=== PATIENT | male | born 1940 | race Caucasian/White ===

== ENCOUNTER → 2016-11-19 | Outpatient (CLI) | payer MEDICARE, BC ==
[~2016-11-19] MED LIST: ALDA50TA2 PO; ASPE10GE TOPICAL; CLOP75TA PO; FURO1TAB62 PO; LEVO100T5 PO; MELA5TAB15 PO; OMEP20TA PO; OXYC-392 PO; PROP10TA6 PO; SIMV10TA PO; VENL150T PO
[2016-11-19 15:42] LABS: INTERNATIONAL NORMALIZED RATIO 1.1 RATIO; PROTHROMBIN TIME - PATIENT 11.7 SEC (9.8-11.6)
[2016-11-19 17:02] LABS: AUTOMATED NEUTROPHIL # 3.5 TH/MM3 (1.8-7.7); BASOPHIL % 0.3 % (0.0-2.0); EOSINOPHIL # 0.1 TH/MM3 (0-0.4); EOSINOPHIL % 1.2 % (0.0-4.0); HEMATOCRIT 34.6 % (39.0-51.0); LYMPHOCYTE # 0.6 TH/MM3 (1.0-4.8); MEAN CELL VOLUME 95.4 FL (80.0-100.0); MEAN CORPUSCULAR HEMOGLOBIN 32.3 PG (27.0-34.0); MEAN CORPUSCULAR HGB CONC 33.9 % (32.0-36.0); MONO % 8.5 % (0.0-8.0); PLATELET COUNT 100 TH/MM3 (150-450); RED BLOOD COUNT 3.63 MIL/MM3 (4.50-5.90); RED CELL DISTRIBUTION WIDTH 15.4 % (11.6-17.2); WHITE BLOOD COUNT 4.6 TH/MM3 (4.0-11.0)
[2016-11-19 17:09] LABS: ALKALINE PHOSPHATASE 133 U/L (45-117); TOTAL BILIRUBIN ADULT 1.4 MG/DL (0.2-1.0)
[2016-11-19 17:12] LABS: ALT (GPT) 40 U/L (12-78); ANION GAP 12 MEQ/L (5-15); AST (GOT) 56 U/L (15-37); BICARBONATE 20.4 MEQ/L (21.0-32.0); BLOOD UREA NITROGEN 15 MG/DL (7-18); CHLORIDE 103 MEQ/L (98-107); GLOMERULAR FILTRATION RATE 47 ML/MIN (>89); SODIUM (NA) 135 MEQ/L (136-145)
[2016-11-19 17:27] LABS: HEMO FLAGS AUTO DIFF
[2016-11-19 17:53] LABS: PLATELET ESTIMATE SMEAR LOW (NORMAL); PLATELET MORPHOLOGY NORMAL (NORMAL); SCAN/DIFF AUTO DIFF CONFIRMED
== END ==
LOC: PLAB 12:58
DX: K74.69 Other cirrhosis of liver (principal)
CPT/HCPCS: 36415; 80053; 82105; 85025; 85610

== ENCOUNTER 2016-12-17 17:19 | Emergency (ER) | payer MEDICARE, BC ==
[~2016-12-17 17:19] MED LIST changes: +MELA5 PO; -MELA5TAB15 PO; -OMEP20TA PO; +OMEP20TA93 PO
[2016-12-17 17:22] VITALS: BP 102/65; PULSE 73; RESP 16; TEMP 97.8; O2SAT 94
[2016-12-17 19:13] LABS: BACTERIA, URINE MANY /hpf; BLOOD, URINE MOD (NEG); COMMENT (UR) CULTURE INDICATED; CULTURE IF INDICATED CULTURE INDICATED; GLUCOSE,URINE NEG (NEG); KETONE, URINE NEG (NEG); NITRITE,URINE NEG (NEG); PH, URINE 5.5 (5.0-8.5); SQUAMOUS EPITHELIAL CELL URINE <1 /hpf (0-5); URINE COLOR YELLOW (YELLW/STRAW)
[2016-12-17 19:14] LABS: AUTOMATED NEUTROPHIL # 6.6 TH/MM3 (1.8-7.7); BASOPHIL % 0.4 % (0.0-2.0); EOSINOPHIL % 0.4 % (0.0-4.0); HEMATOCRIT 32.5 % (39.0-51.0); LYMPH % 7.9 % (9.0-44.0); LYMPHOCYTE # 0.6 TH/MM3 (1.0-4.8); MEAN CELL VOLUME 94.6 FL (80.0-100.0); MEAN CORPUSCULAR HEMOGLOBIN 32.5 PG (27.0-34.0); MEAN CORPUSCULAR HGB CONC 34.4 % (32.0-36.0); MONO % 7.8 % (0.0-8.0); NEUT % 83.5 % (16.0-70.0); PLATELET COUNT 66 TH/MM3 (150-450); RED BLOOD COUNT 3.44 MIL/MM3 (4.50-5.90); RED CELL DISTRIBUTION WIDTH 15.4 % (11.6-17.2); WHITE BLOOD COUNT 7.9 TH/MM3 (4.0-11.0)
[2016-12-17 19:18] LABS: HEMO FLAGS AUTO DIFF
--- NOTE | 2016-12-17 19:19 | PD ---
HPI Chief Complaint: Abdominal Pain Time Seen by Provider: 19:14 Travel History International Travel<30 days: No Contact w/Intl Traveler<30days: No Traveled to known affect area: No History of Present Illness HPI per pt and family member, over past 3weeks, worsening abd girth, abd pain, and nausea but without vomiting, no fever/d/cough/cp/back pain...no alleviating/ aggravatting factors.....PATIENT DID NOTE INCREASE FREQUENCY AND SUPRAPUBIC DISCOMFORT OVER PAST 2-3 DAYS WHICH WERE DIFFERENT FROM HIS USUAL DIFFUSE ABD PAIN, PRESSURE, 10, NONRAD. marg[place]ita gi pcp: [facility] Past Medical History Arthritis: Yes Cancer: Yes (HX PROSTATE) Cardiovascular Problems: No High Cholesterol: Yes Cirrhosis: Yes (LIVER) Diabetes: No Diminished Hearing: No Endocrine: Yes Gastrointestinal Disorders: Yes (GERD, GI BLEED HX) GERD: Yes Genitourinary: No Hepatitis: No Hiatal Hernia: No Hypertension: Yes Immune Disorder: No Kidney Stones: Yes Medical other: Yes (Right thumb surgery) Musculoskeletal: Yes (ARTHRITIS) Neurologic: Yes (LUMBAR PAIN) Psychiatric: No Reproductive: No Respiratory: Yes (SLEEP APNEA/ C PAP) Radiation Therapy: Yes (SEEDS IMPLANTED) Thyroid Disease: Yes Past Surgical History Abdominal Surgery: No AICD: No Body Medical Devices: LUMBAR HARDWARE Cardiac Surgery: No Ear Surgery: No Endocrine Surgery: No Genitourinary Surgery: Yes (PROSTATE SEEDS IMPLANTED) Joint Replacement: No Neurologic Surgery: Yes (LUMBAR FUSION) Oral Surgery: Yes (T&A) Pacemaker: No Thoracic Surgery: No Tonsillectomy: Yes (T&A) Other Surgery: Yes Social History Alcohol Use: No (HX OF ETOH ABUSE) Tobacco Use: No (QUIT 33 YEARS AGO) Substance Use: No Allergies-Medications (Allergen,Severity, Reaction): Coded Allergies: Sulfa (Sulfonamide Antibiotics) (Unverified Allergy, Severe, Rash, swelling, 09/24/16) Reported Meds & Prescriptions Reported Meds & Active Scripts Active Reported Aldactone (Spironolactone) 50 Mg Tab 50 Mg PO DAILY Lasix (Furosemide) 20 Mg Tab 20 Mg PO DAILY Melatonin 5 Mg Tab 1-3 Mg PO HS Venlafaxine ER 24 HR (Venlafaxine HCl) 150 Mg Tab 150 Mg PO DAILY Simvastatin 10 Mg Tab 10 Mg PO DAILY Propranolol (Propranolol HCl) 10 Mg Tab 10 Mg PO Q12HR Oxycodone (Oxycodone HCl) 5 Mg Tab 5 Mg PO Q8H PRN Omeprazole 20 Mg Tab 20 Mg PO DAILY Levothyroxine (Levothyroxine Sodium) 100 Mcg Tab 100 Mcg PO DAILY Clopidogrel (Clopidogrel Bisulfate) 75 Mg Tab 75 Mg PO DAILY Aspercreme Heat Topical (Menthol Topical) 10 % Gel 1 Applic TOPICAL DIRECTED PRN Review of Systems Except as stated in HPI: all other systems reviewed are Neg General / Constitutional: Positive: Other (gen weakness), No: Fever Eyes: No: Visual changes HENT: No: Headaches Cardiovascular: No: Chest Pain or Discomfort Respiratory: No: Shortness of Breath Gastrointestinal: Positive: Nausea, Abdominal Pain Genitourinary: No: Dysuria Musculoskeletal: No: Pain Skin: No Rash Neurologic: No: Weakness Psychiatric: No: Depression Endocrine: No: Polydipsia Hematologic/Lymphatic: No: Easy Bruising Physical Exam Narrative GENERAL: SKIN: Warm and dry. some jaundice noted HEAD: Atraumatic. Normocephalic. EYES: Pupils equal and round. No scleral icterus. No injection or drainage. ENT: No nasal bleeding or discharge. Mucous membranes pink and moist. NECK: Trachea midline. No JVD. CARDIOVASCULAR: Regular rate and rhythm. RESPIRATORY: No accessory muscle use. Clear to auscultation. Breath sounds equal bilaterally. GASTROINTESTINAL: Abdomen soft, non-tender, mild abd distension. MUSCULOSKELETAL: Extremities without clubbing, cyanosis, or edema. No obvious deformities. NEUROLOGICAL: Awake and alert. No obvious cranial nerve deficits. Motor grossly within normal limits. Five out of 5 muscle strength in the arms and legs. Normal speech. PSYCHIATRIC: Appropriate mood and affect; insight and judgment normal. Data Data Last Documented VS Vital Signs Date Time Temp Pulse Resp B/P (MAP) Pulse Ox O2 Delivery O2 Flow Rate FiO2 12/17/16 19:25 62 18 116/71 (86) 98 Room Air 12/17/16 17:22 97.8 Orders Orders Complete Blood Count With Diff (12/17/16 17:34) Comprehensive Metabolic Panel (12/17/16 17:34) Prothrombin Time / Inr (Pt) (12/17/16 17:34) Act Partial Throm Time (Ptt) (12/17/16 17:34) Urinalysis - C+S If Indicated (12/17/16 17:34) Electrocardiogram (12/17/16 17:34) Ammonia (12/17/16 17:34) Urine Culture (12/17/16 16:20) Ceftriaxone Inj (Rocephin Inj) (12/17/16 19:30) Sodium Chlorid 0.9% 500 Ml Inj (Ns 500 M (12/17/16 20:15) Ct Abd/Pel W/O Iv Contrast (12/17/16 20:01) Labs Laboratory Tests Test 12/17/16 16:20 12/17/16 19:34 White Blood Count 7.9 TH/MM3 Red Blood Count 3.44 MIL/MM3 Hemoglobin 11.2 GM/DL Hematocrit 32.5 % Mean Corpuscular Volume 94.6 FL Mean Corpuscular Hemoglobin 32.5 PG Mean Corpuscular Hemoglobin Concent 34.4 % Red Cell Distribution Width 15.4 % Platelet Count 66 TH/MM3 Mean Platelet Volume 8.2 FL Neutrophils (%) (Auto) 83.5 % Lymphocytes (%) (Auto) 7.9 % Monocytes (%) (Auto) 7.8 % Eosinophils (%) (Auto) 0.4 % Basophils (%) (Auto) 0.4 % Neutrophils # (Auto) 6.6 TH/MM3 Lymphocytes # (Auto) 0.6 TH/MM3 Monocytes # (Auto) 0.6 TH/MM3 Eosinophils # (Auto) 0.0 TH/MM3 Basophils # (Auto) 0.0 TH/MM3 CBC Comment AUTO DIFF Differential Comment AUTO DIFF CONFIRMED Toxic Granulation 1+ Platelet Estimate LOW Platelet Morphology Comment NORMAL Prothrombin Time 12.1 SEC Prothromb Time International Ratio 1.1 RATIO Activated Partial Thromboplast Time 28.7 SEC Urine Color YELLOW Urine Turbidity HAZY Urine pH 5.5 Urine Specific Sullivan 1.014 Urine Protein TRACE mg/dL Urine Glucose (UA) NEG mg/dL Urine Ketones NEG mg/dL Urine Occult Blood MOD Urine Nitrite NEG Urine Bilirubin NEG Urine Urobilinogen 2.0 MG/DL Urine Leukocyte Esterase TRACE Urine RBC 2 /hpf Urine WBC 16 /hpf Urine Squamous Epithelial Cells <1 /hpf Urine Amorphous Sediment RARE Urine Bacteria MANY /hpf Microscopic Urinalysis Comment CULTURE INDICATED Blood Urea Nitrogen 30 MG/DL Creatinine 1.22 MG/DL Random Glucose 117 MG/DL Total Protein 8.6 GM/DL Albumin 2.8 GM/DL Calcium Level 9.3 MG/DL Alkaline Phosphatase 176 U/L Aspartate Amino Transf (AST/SGOT) 44 U/L Alanine Aminotransferase (ALT/SGPT) 51 U/L Total Bilirubin 1.5 MG/DL Sodium Level 128 MEQ/L Potassium Level 4.3 MEQ/L Chloride Level 95 MEQ/L Carbon Dioxide Level 23.2 MEQ/L Anion Gap 10 MEQ/L Estimat Glomerular Filtration Rate 57 ML/MIN Ammonia 15 MCMOL/L [facility] Medical Decision Making Medical Screen Exam Complete: Yes Emergency Medical Condition: Yes Medical Record Reviewed: Yes Interpretation(s) nsr, 63, inverted t waves v1-v4, no stemi pattern Differential Diagnosis uti v pna v cirrhosis v sbo v ileus v pancreatitis v hepatic encephalopathy Narrative Course PATIENT FOUND TO HAVE UTI WITH MILD HYPONATREMIA...TOLERATED PO CHALLENGE AND APPEARS TO BE A CANDIDATE FOR OUTPATIENT THERAPY AFTER ROCEPHIN AND NS IVF GIVEN. Diagnosis Primary Impression: UTI Additional Impression: HYPONATREMIA Patient Instructions: General Instructions, Urinary Tract Infection in Men (ED) Additional Instructions: PLEASE MAKE APPOINTMENT TO FOLLOW UP WITH DR THAO FOR FURTHER REEVALUATION AND CARE Scripts Ciprofloxacin (Cipro) 500 Mg Tab 500 MG PO BID for Infection for 7 Days, #14 TAB 0 Refills Prov: Kaiser Mendoza MD 12/17/16 Oxycodone (Oxycodone) 5 Mg Cap 5 MG PO Q6H Y for PAIN, #14 CAP 0 Refills Prov: Kaiser Mendoza MD 12/17/16 Disposition: 01 DISCHARGE HOME Condition: Stable Kaiser Mendoza MD Dec 17, 2016 19:19
[2016-12-17 19:23] LABS: APTT (PATIENT) 28.7 SEC (24.3-30.1); INTERNATIONAL NORMALIZED RATIO 1.1 RATIO; PROTHROMBIN TIME - PATIENT 12.1 SEC (9.8-11.6)
[2016-12-17 19:25] VITALS: BP 116/71; PULSE 62; RESP 18; O2SAT 98
[2016-12-17] MEDS ORDERED: cefTRIAXone INJ 1,000 MG in SODIUM CHLORIDE 0.9% INJ 100 ML IV ONE (19:30)
[2016-12-17 19:35] LABS: ANION GAP 10 MEQ/L (5-15); AST (GOT) 44 U/L (15-37); BICARBONATE 23.2 MEQ/L (21.0-32.0); BLOOD UREA NITROGEN 30 MG/DL (7-18); CHLORIDE 95 MEQ/L (98-107); GLOMERULAR FILTRATION RATE 57 ML/MIN (>89); POTASSIUM 4.3 MEQ/L (3.5-5.1); SODIUM (NA) 128 MEQ/L (136-145)
[2016-12-17 19:36] LABS: ALT (GPT) 51 U/L (12-78)
[2016-12-17 19:39] LABS: ALKALINE PHOSPHATASE 176 U/L (45-117); TOTAL BILIRUBIN ADULT 1.5 MG/DL (0.2-1.0)
[2016-12-17 20:03] LABS: PLATELET ESTIMATE SMEAR LOW (NORMAL); PLATELET MORPHOLOGY NORMAL (NORMAL); SCAN/DIFF AUTO DIFF CONFIRMED; TOXIC GRANULATION 1+ (NORMAL)
[2016-12-17] MEDS ORDERED: SODIUM CHLORID 0.9% 500 ML INJ 500 ML IV ONE (20:15)
--- NOTE | 2016-12-17 20:43 | RADRPT ---
EXAM DATE/TIME: 12/17/2016 20:15 [facility] COMPARISON: CT ABDOMEN & PELVIS W/O CONTRAST, January 13, 2014, 2:28. INDICATIONS : Diffuse abdominal pain with distention and nausea. ORAL CONTRAST: No oral contrast ingested. RADIATION DOSE: 7.17 CTDIvol (mGy) MEDICAL HISTORY : Cardiovascular disease. Hypertension. Carcinoma, prostate.renal stones, cirrohsis SURGICAL HISTORY : None. ENCOUNTER: Initial ACUITY: 3 days PAIN SCALE: 8/10 LOCATION: abdomen TECHNIQUE: Volumetric scanning of the abdomen and pelvis was performed. Using automated exposure control and ad justment of the mA and/or kV according to patient size, radiation dose was kept as low as reasonably achievable to obtain optimal diagnostic quality images. DICOM format image data is available electro nically for review and comparison. FINDINGS: LOWER LUNGS: The visualized lower lungs are clear. LIVER: There is a lobulated contour to the liver. No discrete mass on this unenhanced study. Gallbladder is unremarkable. A trace amount of ascitic fluid adjacent to the right lobe. SPLEEN: The spleen is enlarged measuring 16.4 cm. This is larger from the prior study. PANCREAS: Within normal limits. KIDNEYS: Normal in size and shape. There is no mass, stone, or hydronephrosis. ADRENAL GLANDS: Within normal limits. VASCULAR: Fusiform aneurysmal change involving the infrarenal aorta and bilateral common iliac arteries. The ao rta measures 3.6 x 3.4 cm which is stable from the prior study. The left common iliac artery measures approximately 2 cm and the right 1.7 cm. BOWEL/MESENTERY: The stomach, small bowel, and colon demonstrate no acute abnormality. There is no free intraperitone al air or fluid. ABDOMINAL WALL: Within normal limits. RETROPERITONEUM: There is no lymphadenopathy. BLADDER: No wall thickening or mass. REPRODUCTIVE: Within normal limits. INGUINAL: There is a right inguinal hernia containing ascitic fluid. MUSCULOSKELETAL: A degenerative spine with post surgical changes involving the lower lumbar spine. CONCLUSION: 1. Cirrhosis with small volume ascites. 2. Splenomegaly. 3. Stable AAA is 3.6 x 3.4 cm. 4. Right inguinal hernia containing ascitic fluid. Jeromy Holm Jr., MD on December 17, 2016 at 20:36 Board Certified Radiologist. This report was verified electronically.
[2016-12-17] MEDS ORDERED: OXYC1CAP PO (21:21)
[2016-12-17] MEDS ORDERED: CIPR-9 PO (21:21)
--- NOTE | 2016-12-18 09:43 | EKG ---
Date Performed: 12/17/2016 Time Performed: 19:15:40 PTAGE: 76 years EKG: Sinus rhythm MODERATE T-WAVE ABNORMALITY, CONSIDER ANTERIOR ISCHEMIA ABNORMAL ECG NO PREVIOUS TRACING DOCTOR: Jhoan Augustin Interpretating Date/Time 12/18/2016 09:42:33
== END 2016-12-17 22:13 | disposition home or self-care (01) ==
LOC: NEPC 17:19
DX: N39.0 Urinary tract infection, site not specified (principal); E87.1 Hypo-osmolality and hyponatremia; R11.0 Nausea; B96.1 Klebsiella pneumoniae [K. pneumoniae] as the cause of diseases classified elsewhere; R94.31 Abnormal electrocardiogram [ECG] [EKG]; R16.1 Splenomegaly, not elsewhere classified; I71.4 Abdominal aortic aneurysm, without rupture; K40.90 Unilateral inguinal hernia, without obstruction or gangrene, not specified as recurrent; I10 Essential (primary) hypertension
CPT/HCPCS: 74176; 80053; 81001; 82140; 85025; 85610; 85730; 87077; 87086; 87186; 93005; 96374; 99285; J0696; J7040

== ENCOUNTER 2017-01-09 08:13 | Day surgery (SDC) | payer MEDICARE, BC ==
[~2017-01-09 08:13] MED LIST changes: +CIPR-9 PO; +OXYC1CAP PO
[2017-01-09 09:37] VITALS: BP 115/70; PULSE 86; RESP 16; TEMP 97; O2SAT 96
[2017-01-09 10:10] VITALS: BP 99/61; PULSE 87; RESP 18; TEMP 98.4; O2SAT 94
[2017-01-09 10:34] VITALS: BP 108/54; PULSE 80; RESP 18; O2SAT 99
--- NOTE | 2017-01-09 10:42 | RADRPT ---
EXAM DATE/TIME: 01/09/2017 08:54 [facility] COMPARISON: No previous studies available for comparison. INDICATIONS : Ascites. MEDICAL HISTORY : Hypercholesterolemia. Hypertension. Gastroesophageal reflux disease. Aortic stenosis. Glaucoma. Arthr itis. Prostate cancer. Kidney stones. Hypothyroidism. Skin cancer. Cirrhosis. SURGICAL HISTORY : Tonsillectomy. TAVR. Lumbar fusion. Prostate seed implantation. Right thumb amputation. Grafting fro m left hip. ENCOUNTER: Initial ACUITY: 1 day PAIN SCORE: 0/10 LOCATION: Left lower quadrant FLUID: Total volume of 4,500 cc of clear, yellow fluid was removed. Fluid was discarded. Paracentesis was therapeutic only. Post procedure scanning reveals no hematoma or other complication. TECHNIQUE: 1. Ultrasound guidance for abdominal paracentesis. 2. Paracentesis. The risks, benefits, and alternatives to ultrasound guided paracentesis were explained to the patient in detail including the risk of bleeding and infection. Written and verbal informed consent was obt ained. With the patient on the ultrasound table, ultrasound imaging was used to select the most appropriate approach for paracentesis. Overlying skin was prepped and draped in the usual sterile fashion and wi th a local anesthetic, a dermatotomy was made with an 11 blade scalpel. A 6 Yoruba Evp-G-earkzvro ca theter was introduced into the peritoneal cavity and fluid was collected. The patient tolerated the procedure well and left the ultrasound suite in stable condition. CONCLUSION: Uncomplicated ultrasound guided paracentesis. Jeromy Holm Jr., MD on January 09, 2017 at 10:40 Board Certified Radiologist. This report was verified electronically.
== END 2017-01-09 11:05 ==
LOC: HRAD 08:13 → HRIP 08:36 → HRAD 11:05
PROVIDERS: ATTEND Family Medicine
DX: R18.8 Other ascites (principal); E78.00 Pure hypercholesterolemia, unspecified; I10 Essential (primary) hypertension; K21.9 Gastro-esophageal reflux disease without esophagitis; I35.0 Nonrheumatic aortic (valve) stenosis; H40.9 Unspecified glaucoma; E03.9 Hypothyroidism, unspecified; K74.60 Unspecified cirrhosis of liver; Z87.442 Personal history of urinary calculi; Z85.46 Personal history of malignant neoplasm of prostate; Z85.828 Personal history of other malignant neoplasm of skin
CPT/HCPCS: 49083; C1729

== ENCOUNTER 2017-04-04 11:13 | Day surgery (SDC) | payer BC, MEDICARE, OTHER ==
[2017-04-04 11:53] LABS: HEMATOCRIT 27.4 % (39.0-51.0); HEMOGLOBIN 9.4 GM/DL (13.0-17.0); MEAN CELL VOLUME 94.4 FL (80.0-100.0); MEAN CORPUSCULAR HEMOGLOBIN 32.3 PG (27.0-34.0); MEAN CORPUSCULAR HGB CONC 34.2 % (32.0-36.0); PLATELET COUNT 92 TH/MM3 (150-450); RED BLOOD COUNT 2.91 MIL/MM3 (4.50-5.90); RED CELL DISTRIBUTION WIDTH 17.4 % (11.6-17.2); WHITE BLOOD COUNT 4.9 TH/MM3 (4.0-11.0)
[2017-04-04 12:02] LABS: INTERNATIONAL NORMALIZED RATIO 1.1 RATIO; PROTHROMBIN TIME - PATIENT 11.2 SEC (9.8-11.6)
[2017-04-04 13:20] VITALS: BP 113/76; PULSE 86; RESP 22; TEMP 97.7; O2SAT 100
[2017-04-04] MEDS ORDERED: ALBUMIN HUMAN 25% 50 GM IV ONE (14:30)
[2017-04-04] MEDS ORDERED: LIDOCAINE HCL 1% 20 ML VIAL ONE (15:16)
--- NOTE | 2017-04-04 15:59 | RADRPT ---
EXAM DATE/TIME: 04/04/2017 13:15 [facility] COMPARISON: US GUIDED ABD PARACENTESIS, January 09, 2017, 8:54. INDICATIONS : Ascites. MEDICAL HISTORY : Cirrhosis. Hypercholesterolemia. Hypertension. Gastroesophageal reflux disease. Aorticstenosis. Gla ucoma. Arthritis. Prostate cancer. Kidney stones. Hypothyroidism. Skin cancer. SURGICAL HISTORY : Tonsillectomy. TAVR. Lumbar fusion. Prostate seed implantation. Right thumb amputation. Grafting from left hip. ENCOUNTER: Subsequent ACUITY: 3 months PAIN SCORE: 5/10 LOCATION: Right lower quadrant FLUID: Total volume of 7,600 cc of cloudy, red tinged fluid was removed. Fluid was discarded. Paracentesis was therapeutic only. Post procedure scanning reveals no hematoma or other complication. TECHNIQUE: 1. Ultrasound guidance for abdominal paracentesis. 2. Paracentesis. The risks, benefits, and alternatives to ultrasound guided paracentesis were explained to the patient in detail including the risk of bleeding and infection. Written and verbal informed consent was obt ained. With the patient on the ultrasound table, ultrasound imaging was used to select the most appropriate approach for paracentesis. Overlying skin was prepped and draped in the usual sterile fashion and wi th a local anesthetic, a dermatotomy was made with an 11 blade scalpel. A 6 Taiwanese Qhx-B-hrwuzjnv ca theter was introduced into the peritoneal cavity and fluid was collected. The patient tolerated the procedure well and left the ultrasound suite in stable condition. CONCLUSION: Uncomplicated ultrasound guided paracentesis. Raj Alford MD on April 04, 2017 at 15:57 Board Certified Radiologist. This report was verified electronically.
== END 2017-04-04 16:00 | disposition home or self-care (01) ==
LOC: HRAD 11:13 → HRIP 11:36 → HRAD 16:00
PROVIDERS: ATTEND Family Medicine
DX: R18.8 Other ascites (principal); K74.60 Unspecified cirrhosis of liver; I35.0 Nonrheumatic aortic (valve) stenosis; I10 Essential (primary) hypertension; E78.00 Pure hypercholesterolemia, unspecified; K21.9 Gastro-esophageal reflux disease without esophagitis; H40.9 Unspecified glaucoma; E03.9 Hypothyroidism, unspecified; Z85.46 Personal history of malignant neoplasm of prostate; Z85.828 Personal history of other malignant neoplasm of skin; Z87.442 Personal history of urinary calculi; Z01.818 Encounter for other preprocedural examination
CPT/HCPCS: 36415; 49083; 85027; 85610; 85730; 96365; C1729; P9047

== ENCOUNTER 2017-04-17 08:12 | Day surgery (SDC) | payer MEDICARE, BC ==
[~2017-04-17] VITALS: Ht 165.1 cm; Wt 68.2 kg
[2017-04-17] MEDS ORDERED: IOHEXOL 350 MG/ML 50 ML BTL (for RAD DIAG) OTHER ONE (08:13)
[2017-04-17 08:38] VITALS: BP 141/72; PULSE 76; RESP 20; TEMP 97.6; O2SAT 95
[2017-04-17] MEDS ORDERED: VANCOMYCIN 1000 MG/NS 250 ML - implanted port/tunneled catheter IV SCH ×2 (08:45)
[2017-04-17] MEDS ORDERED: SODIUM CHLORIDE 0.9% 1000 ML IV SCH (08:45)
[2017-04-17] MEDS ORDERED: ceFAZolin 2 GM PREMIX 50 ML - implanted port/tunneled catheter insertion IV SCH (08:45)
[2017-04-17] MEDS ORDERED: ZOLP5TAB3 PO (08:57)
[2017-04-17] MEDS ORDERED: POTA10TA2 PO (08:57)
[2017-04-17] MEDS ORDERED: MULT-65 PO (08:57)
[2017-04-17] MEDS ORDERED: LACT10SO PO (08:57)
[2017-04-17] MEDS ORDERED: LORA1TAB12 PO (08:57)
[2017-04-17] MEDS ORDERED: DOCU100C15 PO (08:57)
[2017-04-17] MEDS ORDERED: ZOFR4TAB PO (08:57)
[2017-04-17] MEDS ORDERED: RANI150C PO (08:57)
[2017-04-17] MEDS ORDERED: XIFA550T4 PO (08:57)
[2017-04-17] MEDS ORDERED: L. A1CAP PO (08:57)
[2017-04-17] MEDS ORDERED: DIPH25CA PO (08:57)
[2017-04-17] MEDS ORDERED: [UNRECOGNIZED DRUG - OTHER] PO (08:57)
[2017-04-17 09:02] LABS: AUTOMATED NEUTROPHIL # 2.2 TH/MM3 (1.8-7.7); BASOPHIL % 1.3 % (0.0-2.0); EOSINOPHIL # 0.2 TH/MM3 (0-0.4); HEMOGLOBIN 8.9 GM/DL (13.0-17.0); LYMPH % 13.6 % (9.0-44.0); LYMPHOCYTE # 0.5 TH/MM3 (1.0-4.8); MEAN CELL VOLUME 93.7 FL (80.0-100.0); MEAN CORPUSCULAR HEMOGLOBIN 31.9 PG (27.0-34.0); MEAN CORPUSCULAR HGB CONC 34.1 % (32.0-36.0); MEAN PLATELET VOLUME 6.7 FL (7.0-11.0); MONOCYTE # 0.4 TH/MM3 (0-0.9); NEUT % 65.1 % (16.0-70.0); PLATELET COUNT 89 TH/MM3 (150-450); RED BLOOD COUNT 2.78 MIL/MM3 (4.50-5.90); RED CELL DISTRIBUTION WIDTH 16.9 % (11.6-17.2); WHITE BLOOD COUNT 3.4 TH/MM3 (4.0-11.0)
[2017-04-17 09:43] LABS: OVALOCYTES 1+ (NORMAL)
[2017-04-17] MEDS ORDERED: MIDAZOLAM HCL 2 MG/2 ML VIAL ONE (09:48)
[2017-04-17] MEDS ORDERED: LIDOCAINE 1%/EPINEPHrine 1:100,000 SOLN 30 ML VIAL ONE (10:08)
--- NOTE | 2017-04-17 10:43 | PD.RAD ---
Post Procedure Progress Note Pre Procedure Diagnosis: (1) Ascites (2) Cirrhosis Post Procedure Diagnosis: (1) Cirrhosis (2) Ascites Procedure Date: Apr 17, 2017 Supervising Radiologist: Raj Alford Estimated blood loss: 1cc Anesthesia: Local, Conscious Sedation Plan of Activity Patient to Unit: ROPU Patient Condition: Fair Additional Comments: ASPIRA drain placed in the right side of the abdomen. Catheter is in excellent position OK for use. Full dictated report to follow See PACS Report for procedural detail/treatment Raj Alford MD Apr 17, 2017 10:43
[2017-04-17 11:00] VITALS: BP 101/52; PULSE 98; RESP 16; TEMP 98.3; O2SAT 96
[2017-04-17 11:15] VITALS: BP 111/65; PULSE 98; RESP 18; O2SAT 96
[2017-04-17 11:45] VITALS: BP 102/59; PULSE 97; RESP 18; O2SAT 98
[2017-04-17 12:15] VITALS: BP 134/71; PULSE 88; RESP 16; O2SAT 94
--- NOTE | 2017-04-17 13:57 | RADRPT ---
EXAM DATE/TIME: 04/17/2017 10:48 [facility] COMPARISON: No previous studies available for comparison. INDICATIONS : Ascites. Liver cirrohosis non alchoholic. MEDICAL HISTORY : 1. Prostate cancer 2. Sleep apnea 3. Prostate CA 4. UTI 5. Aortic stenosis SURGICAL HISTORY : 1. Frequent Paracentisis 2. TAVAR ENCOUNTER: Initial ACUITY: 4 - 6 months PAIN SCORE: 0/10 FLUORO TIME: 0.6 minutes IMAGE SERIES: 2 SEDATION TIME: 20 minutes CONTRAST: 10 cc Omnipaque (iohexol) 350 SEDATION: 1.) 2 mg midazolam (Versed) IV 2.) 100 mcg fentanyl (Sublimaze) IV DEVICE(S): 1.) 6 Citizen [place] catheter FLUID: Total volume [id number] cc of clear, yellow fluid was removed. PROCEDURE : 1. Fluoroscopic guidance for abdominal paracentesis. 2. Paracentesis. The risks, benefits, and alternatives to paracentesis were explained to the patient in detail, lay te jana including the risk of bleeding and infection. Oral and written informed consent was obtained. The site was prepped in sterile fashion. Full sterile technique was used, including cap, mask, steri le gloves and gown and a large sterile sheet. Hand hygiene and 2% chlorhexidine and/or betadine/alco hol prep was utilized per protocol for cutaneous antisepsis. The skin and subcutaneous tissues were infiltrated with local anesthetic solution. Fluoroscopy was used to select the approach for paracentesis. The skin and subcutaneous tissues wer e infiltrated with Lidocaine solution. The ASPIRA drainage catheter was introduced without difficulty. There is immediate return of ascites. A total of 6.8 L was removed. The ASPIRA drainage catheter placement we dictated in a separate report. The patient tolerated the procedure well and left the angio suite in good condition. CONCLUSION: Uncomplicated paracentesis. Raj Alford MD on April 17, 2017 at 13:52 Board Certified Radiologist. This report was verified electronically.
--- NOTE | 2017-04-17 13:59 | RADRPT ---
EXAM DATE/TIME: 04/17/2017 11:08 [facility] COMPARISON: PARACENTESIS WITH IMAGING, April 17, 2017, 10:48. INDICATIONS : Patient with ascites. MEDICAL HISTORY : 1. Cirrhosis 2. Hypercholesterolemia 3. HTN 4. Gastroesphageal reflux 5. Glaucoma 6. Prostate cancer 7. Kidney stones SURGICAL HISTORY : 1. Tonsillectomy 2. TAVAR 3. Lumbar fusion 4. prostate seed implantation ENCOUNTER: Initial ACUITY: 4-6 months PAIN SCORE: 0/10 FLUORO TIME: 0.6 minutes IMAGE SERIES: 2 SEDATION TIME: 20 minutes CONTRAST: 10 cc Omnipaque (iohexol) 350 ACCESS: Right abd SEDATION: 1.) 2 mg midazolam (Versed) IV 2.) 100 mcg fentanyl (Sublimaze) IV Prophylactic antibiotics were administered with appropriate pre-procedure timing. Vancomycin within 2 hours of procedure, Ancef (or alternative) within 1 hour of procedure. DEVICE: 1. single lumen Aspira cath PROCEDURE : 1. ASPIRA tunneled catheter for drainage of ascites was placed. 2. Conscious sedation with continuous EKG and Oximetry monitoring. The risks, benefits and alternatives to the procedure were explained and verbal and written consent w as obtained. The site was prepped in sterile fashion. Full sterile technique was used, including ca p, mask, sterile gloves and gown and a large sterile sheet. Hand hygiene and 2% chlorhexidine and Be tadine was utilized per protocol for cutaneous antisepsis with appropriate dry time for site. The sk in and subcutaneous tissues were infiltrated with local anesthetic solution. A suitable site in the right flank was selected. A large pocket of ascites was identified with ultras ound. A small incision was made. The peritoneal cavity accessed with a Wiseman blunt needle. A 0.035 wire w as advanced through the needle. The peel-away introducer sheath was advanced over the wire and parked within the abdomen. The ASPIRA drainage catheter was tunneled along the lateral flank on the right. The tip of the cathet er was advanced through the peel-away sheath and into the peritoneal cavity without difficulty. The s mall incision was closed with interrupted Vicryl suture. A cerclage suture was placed around the exit site of the catheter. The catheter drained well. Total 6.8 L of ascites was removed in the operating room. Conscious sedation was performed with the prescribed dosages and duration as above in the presence of an independent trained radiology nurse to assist in the monitoring of the patient. EKG and oximetry remained stable throughout the procedure. CONCLUSION: 1. Successful ASPIRA drainage catheter placement for refractory ascites. Raj Alford MD on April 17, 2017 at 13:56 Board Certified Radiologist. This report was verified electronically.
== END 2017-04-17 13:01 | disposition home or self-care (01) ==
LOC: HROP 08:12 → HRIP 08:13 → HROP 13:01
PROVIDERS: ATTEND Family Medicine
DX: R18.8 Other ascites (principal); K74.60 Unspecified cirrhosis of liver; E78.00 Pure hypercholesterolemia, unspecified; K21.9 Gastro-esophageal reflux disease without esophagitis; H40.9 Unspecified glaucoma; C61 Malignant neoplasm of prostate; N20.0 Calculus of kidney; G47.30 Sleep apnea, unspecified; N39.0 Urinary tract infection, site not specified; I35.0 Nonrheumatic aortic (valve) stenosis; Z98.1 Arthrodesis status
CPT/HCPCS: 49083; 49418; 85025; 99152; 99153; C1729; J2250; J3010; Q9967